=== PATIENT | female | born 1985 | race Asian ===

== ENCOUNTER → 2016-06-06 | Outpatient (CLI) | payer OTHER ==
[~2016-06-06] MED LIST: CLOT1CRE4 TOP; OMEG10007 PO; PRENTAB26 PO
[2016-06-06 15:37] LABS: BASO % 0.2 %; BASO ABS # 0.02 K/uL (0-0.2); COMPLETE YES; EOS % 0.4 %; IG% 0.1 %; LYMPH % 20.2 %; LYMPH ABS # 1.83 K/uL (1.2-3.4); MEAN CELL VOLUME 89.7 fL (80-100); MEAN CORPUSCULAR HGB CONC 34.6 g/dl (32-36); MEAN PLATELET VOLUME 9.6 fL (7.4-10.4); MONO % 5.4 %; NEUT % 73.7 %; PLATELET COUNT 269 K/uL (130-400); WHITE BLOOD COUNT 9.07 K/uL (4.8-10.8)
[2016-06-06 15:59] LABS: URINE APPEARANCE CLEAR (CLEAR); URINE BILIRUBIN NEG (NEG); URINE COLOR YELLOW; URINE NITRITE NEG (NEG); URINE PH 6.5 (4.5-7.5); URINE SPECIFIC GRAVITY 1.016 (1.000-1.030); UROBILINOGEN NEG (NEG)
[2016-06-06 16:00] LABS: MANUAL MICROSCOPIC REQUIRED? NO; REVIEW REQ? NO
[2016-06-12 13:53] LABS: CHLAMYDIA TRACH RNA*** NOT DETECTED (NOT DETECTED); GC (NEIS GONORRHOEAE)RNA** NOT DETECTED (NOT DETECTED)
== END | disposition home or self-care (01) ==
LOC: C.LAB1850 14:17
PROVIDERS: ATTEND Obstetrics & Gynecology
DX: Z34.00 Encounter for supervision of normal first pregnancy, unspecified trimester (principal)

== ENCOUNTER → 2016-07-28 | Outpatient (CLI) | payer OTHER ==
[2016-07-28 14:01] LABS: GTGD 50 Grams
[2016-07-30 14:30] LABS: AFP CONCENTRATION 47.8 NG/ML; AFP MULTIPLE OF MEDIAN 1.26; AFPTS GESTATIONAL AGE 16.9 WEEKS; AFPTS INSULIN DEP DIABETIC? NO; AFPTS MATERNAL WT 141 LBS; EDD DETERMINED BY ULTRASOUND; ESTRIOL MULTIPLE OF MEDIAN 1.02; HISTORY OF NTD NO; INHIBIN A 169 PG/ML; INHIBIN A MOM 0.95; REPEAT SAMPLE? NO; hCG MULTIPLE OF MEDIAN 1.06
== END | disposition home or self-care (01) ==
LOC: C.LAB1850 10:21
PROVIDERS: ATTEND Obstetrics & Gynecology
DX: Z34.02 Encounter for supervision of normal first pregnancy, second trimester (principal)

== ENCOUNTER → 2016-10-15 | Outpatient (CLI) | payer OTHER ==
[~2016-10-15] MED LIST changes: +CLOT-40 TOP; -CLOT1CRE4 TOP
[2016-10-15 10:37] LABS: HEMATOCRIT 34.1 % (37-47)
[2016-10-15 11:40] LABS: GTGD 50 Grams
[2016-10-15 13:27] LABS: URINE APPEARANCE CLEAR (CLEAR); URINE BILIRUBIN NEG (NEG); URINE COLOR YELLOW; URINE EPITHELIAL CELL AUTO >30 /lpf (0-5); URINE NITRITE NEG (NEG); URINE PH 7.5 (4.5-7.5); UROBILINOGEN NEG (NEG)
[2016-10-15 13:42] LABS: MANUAL MICROSCOPIC REQUIRED? NO; REVIEW REQ? NO
== END | disposition home or self-care (01) ==
LOC: C.LAB1850 09:21
PROVIDERS: ATTEND Obstetrics & Gynecology
DX: Z34.03 Encounter for supervision of normal first pregnancy, third trimester (principal)

== ENCOUNTER 2017-01-10 04:58 | Inpatient (IN) | payer BC, OTHER ==
[~2017-01-10] VITALS: Ht 165.1 cm; Wt 72.7 kg
[~2017-01-10 04:58] MED LIST changes: -CLOT-40 TOP
[2017-01-10] MEDS ORDERED: LACTATED RINGER'S 1000ML 1,000 ML IV PRN (05:43)
[2017-01-10] MEDS ORDERED: LACTATED RINGER'S 1000ML 1,000 ML IV SCH (05:43)
[2017-01-10] MEDS ORDERED: PENICILLIN G POTASSIUM IV 3 MU in DEXTROSE 5% 100ML 100 ML IV PRN (05:45)
[2017-01-10] MEDS ORDERED: PENICILLIN G POTASSIUM IV 6 MU in DEXTROSE 5% 250ML 250 ML IV STA (05:54)
[2017-01-10 06:02] VITALS: Ht 165.1 cm; Wt 72.7 kg
[2017-01-10] MEDS ORDERED: CLOT1CRE4 TOP (06:07)
[2017-01-10 06:09] LABS: HEMATOCRIT 38.2 % (37-47); MEAN CELL VOLUME 92.5 fL (80-100); MEAN CORPUSCULAR HEMOGLOBIN 32.2 pg (25-34); MEAN CORPUSCULAR HGB CONC 34.8 g/dl (32-36); MEAN PLATELET VOLUME 9.4 fL (7.4-10.4); PLATELET COUNT 214 K/uL (130-400); RED BLOOD COUNT 4.13 M/uL (4.2-5.4); WHITE BLOOD COUNT 10.85 K/uL (4.8-10.8)
[2017-01-10] MEDS ORDERED: OXYTOCIN 30 UNITS/500ML NSS IV ONE (08:29)
[2017-01-10] MEDS ORDERED: METHYLERGONOVINE MALEATE 0.2 MG/ML AMP ONE (09:57)
[2017-01-10] MEDS ORDERED: ACETAMINOPHEN 325 MG TAB PO PRN (10:15)
[2017-01-10] MEDS ORDERED: OXYTOCIN 30 UNITS/500ML NSS IV PRN (10:15)
[2017-01-10] MEDS ORDERED: SUPERCREAM 0.870 % 15GM JAR EXT PRN (10:15)
[2017-01-10] MEDS ORDERED: OXYCODONE/ACETAMINOPHEN 5-325 TAB PO PRN (10:15)
[2017-01-10] MEDS ORDERED: LANOLIN OINT EXT PRN ×2 (10:15)
[2017-01-10] MEDS ORDERED: IBUPROFEN 600 MG TAB PO PRN (10:15)
[2017-01-10] MEDS ORDERED: BENZOCAINE 20% AER SPR 82.5 GM CAN EXT PRN (10:15)
[2017-01-10] MEDS ORDERED: DIPHTHERIA/TETANUS/PERTUSSIS 0.5 ML SYR/VIAL IM. ONE (10:15)
[2017-01-10] MEDS ORDERED: HYDROCORTISONE ACETATE 25 MG SUPP PR PRN (10:15)
--- NOTE | 2017-01-10 10:38 | DELIVERY SUMMARY ---
DATE OF OPERATION: 01/10/2017 DATE OF DELIVERY: 01/10/2017 PREOPERATIVE DIAGNOSES: 1. Intrauterine at 40-4/7 weeks. 2. Active labor. POSTOPERATIVE DIAGNOSES: 1. Intrauterine at 40-4/7 weeks. 2. Active labor. 3. Thin meconium. PROCEDURES: 1. Amniotomy. 2. Normal spontaneous vaginal delivery. 3. Second degree perineal laceration, right labial laceration with repair. SURGEON: Dr. Sagastume. ESTIMATED BLOOD LOSS: 400 mL. ANESTHESIA: Local infiltration of lidocaine to the perineum. PROCEDURE: The patient presented to labor and delivery in active labor. She progressed to 7-8 cm and underwent an amniotomy for thin meconium. She progressed to complete complete and 0 station and pushed over approximately 3-4 contractions to deliver a viable female in JAIR presentation. There was a loose nuchal cord through which the baby was delivered. There was an immediate cry. The nose and mouth were bulb suctioned and the infant was placed on the maternal abdomen for drying and attention. Cord blood was obtained. The placenta was delivered spontaneously and intact with a 3-vessel cord. Cervix, sulci and rectum were examined and found to be intact. A second degree perineal laceration and right labial laceration was infiltrated with 1% lidocaine and repaired with 3-0 Vicryl on the perineum and 4-0 Vicryl on the labia. Hemostasis obtained with dilute Pitocin and fundal massage. Estimated blood loss 400 mL. Apgars 8 and 9. Weight pending. Mother and baby doing well at the end of the delivery. I attest to the content of the Intraoperative Record and any orders documented therein. Any exception s are noted below.
[2017-01-10] MEDS ORDERED: CLOTRIMAZOLE 1% CR 15 GM TUBE EXT PRN (10:45)
[2017-01-10 14:30] VITALS: BP 97/66; PULSE 88; TEMP 36.7
[2017-01-10] MEDS: DOCUSATE SODIUM 100 MG CAP PO SCH (20:19)
[2017-01-10 20:20] VITALS: BP 98/65; PULSE 87; TEMP 36.5; O2SAT 98
[2017-01-10 23:35] VITALS: BP 95/61; PULSE 76; TEMP 36.7; O2SAT 97
[2017-01-11 04:25] VITALS: BP 97/64; PULSE 88; TEMP 36.7; O2SAT 97
[2017-01-11 06:49] LABS: HEMATOCRIT 35.1 % (37-47)
--- NOTE | 2017-01-11 07:35 | Progress Note ---
Subjective Jan 11, 2017. Subjective conversation w/ patient, physical exam, lab review Ambulation: ambulating normally Voiding: no voiding problems Passing Gas: Yes Diet Tolerance: Regular Diet Lochia: Small Feeding Type: Breast Feeding Pain: controlled Objective Vital Signs Date Time Temp Pulse Resp B/P (MAP) Pulse Ox O2 Delivery O2 Flow Rate FiO2 01/11/17 04:25 36.7 88 18 97/64 (75) 97 Room Air 01/10/17 23:35 36.7 76 16 95/61 (72) 97 Room Air 01/10/17 23:35 97 Room Air 01/10/17 20:20 36.5 87 16 98/65 (76) 98 Room Air 01/10/17 14:30 36.7 88 20 97/66 (76) Physical Exam General Appearance: WELL-APPEARING, WD/WN, NO APPARENT DISTRESS Abdomen: non tender, soft Fundus: Firm, Non-Tender, Relation to Umbilicus (at u) Extremities: non-tender, normal inspection, no pedal edema Laboratory Results Last 24 Hours Test 01/11/17 06:26 Hemoglobin 11.9 g/dL Hematocrit 35.1 % Assessment and Plan Post- Day#: 1 Continue Routine Care: doing well. Routine care. GBS positive mom and not completely treated.
--- NOTE | 2017-01-11 07:37 | Discharge Instructions ---
Discharge Instructions Date of Service Jan 11, 2017. Admission Reason for Admission: LABOR Discharge Discharge Diagnosis / Problem: s/p vaginal delivery Discharge Goals Goal(s): Routine recovery after delivery Medications Continue Dispensed Medications: supercream, dermaplast, tucks, lansinoh Activity Recommendations Activity Limitations: per Instructions/Follow-up section . Instructions / Follow-Up Instructions / Follow-Up ACTIVITY RECOMMENDATIONS: * Gradual return to full activity over the next 2-3 weeks. * No lifting - nothing heavier than baby over the next 2-3 weeks. * Do not engage in vigorous exercise, sexual activity or sports until cleared by your physician. * Do not drive or operate any motorized equipment until cleared by your physician. * You may shower/bathe daily. MEDICATIONS: For discomfort or pain, you may use Acetaminophen (Tylenol), Ibuprofen (Advil), or Naproxen (Aleve) following the package directions. For constipation you may use Colace following the package directions. BREAST CARE: If you are not breast feeding: * Wear a supportive bra 24 hours a day for one to two weeks. * Avoid stimulating your breasts and nipples as much as possible during the first few weeks after delivery. * When taking a shower, have the warm water hit your back, not breasts. * When your breasts feel full, apply ice packs. Usually three to four times a day helps ease the discomfort. * Take a mild pain medication (Tylenol / Motrin) when you are uncomfortable. If breast feeding: * Use breast milk to lubricate nipples. Lansinoh cream may be used for sore nipples. You do not need to remove cream prior to breast feeding. If using a different brand of cream, check the label for directions regarding removal of cream prior to nursing. * Wear a supportive bra. * If having problems with breasts or breast feeding, call a financial sales consultant or your health care provider. EPISIOTOMY CARE: After delivery, if you have an episiotomy (stitches), the following steps will ease discomfort and aid healing. * For the first 24 hours after delivery, place ice packs next to your episiotomy to help reduce swelling. * After the first 24 hour-period, sitz baths, either portable or in the tub, are suggested. A shower with a shower arm sprayed over the episiotomy may be comforting. * Madonna care should be done after each voiding and bowel movement. Squirt warm water from a plastic bottle over the perineum (region of the body between the anus and urinary opening) and pat dry. * Use Dermoplast to ease discomfort. Shake container. Riley directly over the episiotomy. Place a Tucks on a clean sanitary pad next to your episiotomy. SPECIAL CARE INSTRUCTIONS: When you are discharged from the hospital, it is important for you to follow the instructions listed below: * During the first week at home, you should be able to care for yourself and your baby. In addition, the usual light household activities are encouraged. * Limit your activities to the way you feel. Do not try to clean the house or move furniture. Be sensible. * If you actively engage in sports and have done so up until the time of your delivery, you may resume these activities as soon as you feel able. This may take up to one month or even longer. Use good judgment. * Continue to take your vitamins for at least six weeks after the of your baby. * Your diet need not be limited unless you were on a special diet before your delivery. Breast-feeding mothers need around 2500 calories per day and at least 64-80 ounces of fluid per day (8 to 10 glasses). * You should eat foods from the four major food groups. Crash diets or fad diets are to be avoided. Eating lean meats, fresh fruits and vegetables, low-fat dairy products, high fiber foods and a regular exercise program, will help you get back to your pre- weight without putting your health at risk. * Constipation is sometimes a problem after delivery. Take a mild laxative as needed. If breast feeding, Milk of Magnesia is acceptable to use. You may use a suppository or Fleets enema if no episiotomy. * A daily shower or tub bath is suggested. Be sure to thoroughly and gently dry the perineum. * A bloody vaginal discharge will usually continue until around four weeks post . A small amount of bleeding may continue for as long as six weeks. Vaginal discharge changes from the bright red bleeding after delivery to pink then brownish and finally yellowish-pink before becoming white and disappearing. * Bleeding may increase with activity. Your first period may come in 4-8 weeks. If you are breast feeding, your period may be delayed even longer. * [place] (sex) can begin whenever both you and your partner feel comfortable and do not have any form of genital infection. It is recommended that you wait at least six weeks for internal and external healing to occur. If you have questions, please talk to your health care practitioner. A condom should be used to prevent infection and . * Foreplay, gentle intercourse and lubrication is very important the first several times to prevent pain. A water-based lubricant such as K-Y jelly or Astroglide may be used. * If you have RH negative blood and your baby is RH positive, you will receive RHOGAM by injection prior to discharge. The nurse will give you a card to keep with you that has the date and place that you received RHOGAM after delivery. * During your care, you had a Rubella screen done to check for the presence of rubella antibodies in your blood. If your test was negative, you will receive a Rubella vaccine prior to discharge. This vaccine may cause a fever, soreness at the injection site and flu-like symptoms. If these symptoms persist, notify your health care practitioner. is not advised for one month after a Rubella vaccine. * Verbalizes understanding of car seat law as reviewed with patient nursing. * Car Seat hand-out given and reviewed with patient by nursing. * Shaken baby information reviewed with patient by nursing. Call you doctor if: * Heavy bleeding (saturating several pads an hour) or passing clots the size of your fist. * A fever >101 degrees F (38.3 degrees C) on two occasions four hours apart and /or chills. * Unusual pain in the pelvic or vaginal areas. * "Baby Blues" lasting longer than two weeks. If you have any questions or concerns, call your health care practitioner at . FOLLOW UP VISIT: * Please call the office at to schedule a 6 week examination. It is important you keep this appointment. It is important for you to make arrangements for either yearly or twice yearly check-ups thereafter. Current Hospital Diet Patient's current hospital diet: Regular OB Diet Discharge Diet Recommended Diet: Regular Diet Pending Studies Studies pending at discharge: no Medical Emergencies . Who to Call and When: Medical Emergencies: If at any time you feel your situation is an emergency, please call 911 immediately. . Non-Emergent Contact Non-Emergency issues call your: Manager Cleaning . . "Provider Documentation" section prepared by Skyla Sagastume. . VTE Core Measure Inpt VTE Proph given/why not?: Treatment not indicated
[2017-01-11 08:00] VITALS: BP 91/52; PULSE 92; TEMP 36.8
[2017-01-11] MEDS: DOCUSATE SODIUM 100 MG CAP PO SCH ×2 (08:24→20:25)
[2017-01-11] MEDS: PRENATAL VITAMIN TAB PO SCH (08:24)
[2017-01-11 12:20] VITALS: BP 95/61; PULSE 80; TEMP 36.7
[2017-01-11 15:10] VITALS: BP 97/64; PULSE 86; TEMP 36.7
[2017-01-11 23:55] VITALS: BP 106/73; PULSE 84; TEMP 36.8; O2SAT 96
--- NOTE | 2017-01-12 06:35 | Progress Note ---
Subjective Jan 12, 2017. Subjective conversation w/ patient, physical exam, lab review Ambulation: ambulating normally Voiding: no voiding problems Passing Gas: Yes Diet Tolerance: Regular Diet Lochia: Small Feeding Type: Breast Feeding Pain: controlled Objective Vital Signs Date Time Temp Pulse Resp B/P (MAP) Pulse Ox O2 Delivery O2 Flow Rate FiO2 01/11/17 23:55 96 Room Air 01/11/17 23:55 36.8 84 20 106/73 (84) 96 Room Air 01/11/17 15:10 36.7 86 20 97/64 (75) 01/11/17 12:20 36.7 80 16 95/61 (72) 01/11/17 08:00 36.8 92 20 91/52 (65) Physical Exam General Appearance: WELL-APPEARING, WD/WN, NO APPARENT DISTRESS Respiratory/Chest: lungs clear, normal breath sounds Cardiovascular: regular rate, rhythm Abdomen: non tender, soft Fundus: Firm, Non-Tender, Relation to Umbilicus (2 below u) Extremities: non-tender, normal inspection, no pedal edema Assessment and Plan Post- Day#: 2 Continue Routine Care: Doing well, plan d/c. Instructions given.
[2017-01-12 07:53] VITALS: BP 95/66; PULSE 92; TEMP 36.8
[2017-01-12] MEDS: PRENATAL VITAMIN TAB PO SCH (08:00)
[2017-01-12] MEDS: DOCUSATE SODIUM 100 MG CAP PO SCH (08:00)
[2017-01-12 10:52] VITALS: BP_DIAS 66; PULSE 92; TEMP 36.8
== END 2017-01-12 11:25 | disposition home or self-care (01) | DRG 775 ==
LOC: C.LD 04:58 → C.OPB 04:58 → C.LD 05:44 → C.OPB 05:44 → C.OBG 14:03
PROVIDERS: ADMIT Obstetrics & Gynecology; ATTEND Obstetrics & Gynecology
PROC: 10E0XZZ Delivery of Products of Conception, External Approach (ICD-10-PCS; principal; 2017-01-10)
PROC: 0UQMXZZ Repair Vulva, External Approach (ICD-10-PCS; principal; 2017-01-10)
PROC: 0KQM0ZZ Repair Perineum Muscle, Open Approach (ICD-10-PCS; principal; 2017-01-10)
DX: O48.0 Post-term pregnancy (principal); O99.824 Streptococcus B carrier state complicating childbirth; O77.0 Labor and delivery complicated by meconium in amniotic fluid; O70.1 Second degree perineal laceration during delivery; O69.81X0 Labor and delivery complicated by cord around neck, without compression, not applicable or unspecified; Z3A.40 40 weeks gestation of pregnancy; Z37.0 Single live birth